=== PATIENT | male | born 1955 | race Caucasian/White ===

== ENCOUNTER 2025-07-21 00:43 | Emergency (ER) | payer OTHER, MEDICARE ==
[2025-07-21] MEDS ORDERED: HYDROMORPHONE HCL 1 MG/ML INJ ONE ×2 (01:35→04:56)
[2025-07-21] MEDS ORDERED: ONDANSETRON 4 MG/2 ML VIAL ONE (01:35)
[2025-07-21 01:45] LABS: Absolute Lymphocytes (CBC) 1.0 K/uL (0.7-4.9); Hematocrit 41.7 % (39.6-49.0); Hemoglobin 14.3 g/dL (13.6-17.9); MCH 31.1 pg (27.0-35.0); MCHC 34.2 g/dL (32.0-36.0); MCV 90.9 fL (80-100); MPV 7.9 fL (7.6-11.3); Nucleated RBC Absolute Count 0.0 (0-0); Nucleated Red Blood Cells % 0.0 % (0-0); RBC Red Blood Cell Count 4.59 M/uL (4.33-5.43); White Blood Count 7.10 thou/uL (4.3-10.9)
[2025-07-21 02:00] LABS: ALT/SGPT 21 U/L (16-61); Albumin 3.6 g/dL (3.4-5.0); Albumin/Globulin Ratio 1.1 (1.1-1.8); Alkaline Phosphatase 51 U/L (45-117); Anion Gap 8.0 mEq/L (5.0-15.0); BUN Blood Urea Nitrogen 20 mg/dL (7-18); Globulin 3.2 g/dL (2.3-3.5); Glucose Level 161 mg/dL (74-106); Lipase 112 U/L (13-75); Potassium 4.0 mEq/L (3.5-5.1)
[2025-07-21 02:03] LABS: AST/SGOT < 10 U/L (15-37)
--- NOTE | 2025-07-21 04:22 | RAD REPORT ---
EXAMINATION: CT CHEST ABDOMEN PELVIS ANGIOGRAPHY WITH IV CONTRAST INDICATION: 70 years old Male 1955 Dissection. COMPARISON(S): None. TECHNIQUE: This examination was performed according to an angiographic protocol with 3D post-processi ng. This involves 3D reconstructions, MIPs, volume rendered images and/or shaded surface rendering. One or more of the following dose reduction techniques were used: Automated exposure control, adjustm ent of the mA and/or kV according to patient size, and/or iterative reconstruction. CONTRAST: As stated in examination. FINDINGS: CHEST: Lower Neck: Visualized thyroid gland and soft tissues are normal. Lungs and Airways: The airways are clear. Diffuse increased interstitial lung disease is present with early honeycombing along the periphery of the left anterior lung. Mild cylindrical bronchiectasis. Pleura: No pleural effusion. No pneumothorax. Hemidiaphragms are normally positioned. Mediastinum and Lymph Nodes: No mediastinal mass or fluid collection. Normal size mediastinal, hilar, and axillary lymph nodes. Thoracic Aorta: Normal caliber and configuration. Pulmonary Arteries: Good quality examination. Normal caliber. No evidence of pulmonary emboli to the subsegmental level. Heart: Normal heart size. No pericardial effusion. Osseous Structures and Chest Wall: Intact. ABDOMEN AND PELVIS: Cholecystectomy. Fatty liver. Fat-containing left adrenal mass measuring 3.3 x 2.4 cm. No follow-up i leela is recommended. JACR 2017 May; 14(8):1038-44, JCAT 2016 Dec-Jan; 40(2):194-200, Urol J spring; 3(2):71-4. ABDOMINAL AORTA/ILIACS: Measurement(s): Aorta: No significant disease. Celiac Artery: No significant disease. Superior Mesenteric Artery: No significant disease. Right Renal Artery: No significant disease. Left Renal Artery: No significant disease. Inferior Mesenteric Artery: No significant disease. 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 Left Iliac Artery: No significant disease. Calcific plaquing without flow-limiting stenosis. IMPRESSION: Moderate chronic interstitial lung disease with early honeycombing. Cholecystectomy. 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 N o aortic dissection or aneurysm. Electronically signed by: Kwaku Harding MD 07/21/2025 04:18 AM CDT RP Due to temporary technical issues with the PACS/Technical Machine reporting system, reports are being rickey d by the in-house radiologist without review as a courtesy to ensure prompt reporting the interpreting radiologist is fully responsible for the content of the report. Transcribed Date/Time: 07/21/2025 4:21 AM
--- NOTE | 2025-07-21 04:39 | ER ---
Nurse's Notes [facility] Name: Stanislav Ball Age: 70 yrs Sex: Male : 1955 Arrival Date: 07/21/2025 Time: 00:43 Bed 20 Private MD: Diagnosis: Dissection of iliac artery Presentation: 07/21 01:00 Chief complaint: Patient states: PT STATES HE PICKED UP LUGGAGE AND HAD SUDDEN RIGHT br2 SIDE PAIN THAT IS WORSE WITH MOVEMENT. PT TOOK TRAMADOL 100MG 2 HRS AND HASN'T HELPED. Coronavirus screen: Client denies travel out of the [place] in the last 14 days. Ebola Screen: Patient denies exposure to infectious person. Initial Sepsis Screen: Does the patient meet any 2 criteria? No. Patient's initial sepsis screen is negative. Does the patient have a suspected source of infection? No. Patient's initial sepsis screen is negative. Risk Assessment: Do you want to hurt yourself or someone else? Patient reports no desire to harm self or others. Onset of symptoms is unknown. 01:00 Method Of Arrival: Ambulatory br2 01:00 Acuity: SEAN 3 br2 Triage Assessment: 01:03 General: Appears comfortable, Behavior is calm, cooperative. Pain: Complains of pain in br2 low back area. Neuro: Boyd Agitation-Sedation Scale (RASS): 0 - Alert and Calm Level of Consciousness is awake, alert, obeys commands, Oriented to person, place, time, situation. Cardiovascular: Denies chest pain. GI: No signs and/or symptoms were reported involving the gastrointestinal system. Musculoskeletal: Reports pain in anterior aspect of right lateral abdomen. Historical: - Allergies: 01:03 Avelox in NaCl (iso-osmotic); br2 - PMHx: 01:03 Hypertensive disorder; br2 - Immunization history:: Adult Immunizations up to date. - Infectious Disease History:: Denies. - Social history:: Smoking status: Patient/guardian denies using tobacco, Patient uses alcohol, occasionally. RX MARIJUANA. Screenin:11 [facility] ED Fall Risk Assessment (Adult) History of falling in the last 3 months, br2 including since admission No falls in past 3 months (0 pts) Confusion or Disorientation No (0 pts) Intoxicated or Sedated No (0 pts) Impaired Gait No (0 pts) Mobility Assist Device Used No (0 pt) Altered Elimination No (0 pt) Score/Fall Risk Level 0 - 2 = Low Risk Oriented to surroundings. Abuse screen: Denies threats or abuse. Denies injuries from another. Nutritional screening: No deficits noted. Tuberculosis screening: No symptoms or risk factors identified. Assessment: 02:56 Reassessment: Patient ambulated independently to the restroom at this time. at6 02:57 Pain: Pain currently is 7 out of 10 on a pain scale. at6 04:43 Reassessment: Provider at bedside updating patient on plan of care. All questions at6 answered at this time. Patient states symptoms have not improved. 05:00 GI: Bowel sounds present X 4 quads. Abd is soft and non tender in right upper quadrant at6 and right lower quadrant. 06:05 General: Report given to Howard BRITO at [facility]. All questions answered and informed of at6 arrival time. . 06:06 General:. kt5 Vital Signs: 01:00 BP 132 / 79; Pulse 60; Resp 16 S; Temp 97.1(TE); Pulse Ox 100% on R/A; Weight 83.91 kg; br2 Height 6 ft. 3 in. ; Pain 8/10; 02:53 BP 117 / 58; Pulse 60; Resp 20; Pulse Ox 99% on R/A; at6 04:10 BP 121 / 56; Pulse 50; Resp 16; Pulse Ox 100% ; at6 06:07 BP 115 / 68; Pulse 70; Resp 18; Pulse Ox 100% on R/A; at6 01:00 Body Mass Index 23.12 (83.91 kg, 190.5 cm) br2 01:00 Pain Scale: Adult br2 ED Course: 00:45 Patient arrived in ED. mr 00:52 Lee Jennings DO is Attending Physician. tt7 01:03 Triage completed. br2 01:03 Arm band placed on right wrist. br2 01:11 Patient has correct armband on for positive identification. Placed in gown. Bed in low br2 position. Call light in reach. Provided Education on: PLAN OF CARE. 01:32 Marina Fritz, RN is Primary Nurse. br2 02:25 CT Aorta for Dissection In Process Unspecified. EDMS 04:50 initiated transfer with [facility] spoke with Jazz. vk 05:00 Inserted saline lock: 20 gauge. at6 05:01 No provider procedures requiring assistance completed. at6 05:38 Patient was accepted to [facility] to Dr. Armendariz \T\[id number] accepting admin jazz N\T\521 vk [id number]. 06:18 Patient transferred, IV remains in place. at6 Administered Medications: 01:44 Drug: Ondansetron IVP 4 mg IVP once; over 2 minutes Route: IVP; Site: left antecubital; at6 04:46 Follow up: Response: Nausea is decreased at6 01:44 Drug: HYDROmorphone IVP 1 mg IVP once Route: IVP; Site: left antecubital; at6 02:56 Follow up: Response: Pain is decreased at6 04:58 Drug: HYDROmorphone IVP 1 mg IVP once Route: IVP; Site: left antecubital; at6 06:09 Follow up: Response: Pain is decreased at6 Medication: 05:01 VIS not applicable for this client. at6 Outcome: 04:39 ER care complete, transfer ordered by tt7 06:06 Transferred by ground EMS to [facility], at6 06:06 Condition: stable 06:06 Discharge instructions given to patient, family, Instructed on the need for transfer, 06:23 Patient left the ED. at6 Signatures: Dispatcher [employer] EDGisella Covarrubias, Reg Reg mr SinghRubi Belinda, RN RN br2 Analisa Lackey RN RN kt5 Lee Jennings DO DO tt7 Caty Jennings RN RN at6
--- NOTE | 2025-07-21 04:39 | EDPHYS ---
Physician Documentation [facility] Name: Stanislav Ball Age: 70 yrs Sex: Male : 1955 Arrival Date: 07/21/2025 Time: 00:43 Bed 20 Private MD: ED Physician Lee Jennings HPI: 07/21 02:43 This 70 yrs old Male presents to ER via Ambulatory with complaints of Abdominal Pain, tt7 Vomiting. 02:43 Patient reports that he picked up some heavy luggage and felt a popping sensation deep tt7 in on his right flank that has been worsening over the past few hours, the pain is sharp and constant, it is moderate to severe in severity, states that it radiates into the right side of his back, associated with nausea and 1 episode of nonbloody nonbilious vomiting, past medical history of hypertension. Historical: - Allergies: 01:03 Avelox in NaCl (iso-osmotic); br2 - PMHx: 01:03 Hypertensive disorder; br2 - Immunization history:: Adult Immunizations up to date. - Infectious Disease History:: Denies. - Social history:: Smoking status: Patient/guardian denies using tobacco, Patient uses alcohol, occasionally. RX MARIJUANA. ROS: 02:40 Constitutional: negative for fever. Cardiovascular: negative for chest pain. tt7 Respiratory: negative for shortness of breath. MS/Extremity: negative for injury and deformity. Skin: negative for rash. Neuro: negative for focal weakness. 02:40 Abdomen/GI: Positive for abdominal pain, nausea and vomiting, Exam: 02:41 Constitutional: vital signs reviewed, well appearing. Head/Face: normocephalic, tt7 atraumatic. Eyes: no conjunctival injection, anicteric sclerae. ENT: mucus membranes moist. Neck: trachea midline, no JVD, no meningismus. Chest/axilla: normal chest wall appearance and motion, nontender, no crepitus. Cardiovascular: regular rate and rhythm, no murmurs, no rubs, no lower extremity edema. Respiratory: normal respiratory effort, no accessory muscle use, lungs CTAB. Abdomen/GI: soft, nondistended, tenderness to the right flank and around to the right thoracic paraspinal musculature, no guarding or rebound, negative Shanks's sign, no McBurney point tenderness. Back: normal ROM. Skin: warm, dry, intact, normal turgor, normal color, no rash. MS/ Extremity: normal ROM of extremities, no gross deformities. Neuro: alert and oriented with appropriate mental status, normal speech, follows commands, no focal neurologic deficits. Psych: appropriate mood and affect. Vital Signs: 01:00 BP 132 / 79; Pulse 60; Resp 16 S; Temp 97.1(TE); Pulse Ox 100% on R/A; Weight 83.91 kg; br2 Height 6 ft. 3 in. ; Pain 8/10; 02:53 BP 117 / 58; Pulse 60; Resp 20; Pulse Ox 99% on R/A; at6 04:10 BP 121 / 56; Pulse 50; Resp 16; Pulse Ox 100% ; at6 06:07 BP 115 / 68; Pulse 70; Resp 18; Pulse Ox 100% on R/A; at6 01:00 Body Mass Index 23.12 (83.91 kg, 190.5 cm) br2 01:00 Pain Scale: Adult br2 MDM: 00:52 Medical Screening Exam initiated tt7 02:42 Differential diagnosis: Nonspecific abd pain, gastritis, pancreatitis, appendicitis, tt7 diverticulitis, viral gastroenteritis, gastroenteritis, AAA. Data reviewed: vital signs, nurses notes, lab test result(s), radiologic studies. ED course: Vital signs are stable, workup initiated including laboratory studies and CT angiogram of the aorta to rule out abdominal aortic pathology. 05:03 ED course: Laboratory studies are reassuring, CT imaging negative for aortic dissection tt7 but there does appear to be a right common iliac artery intimal dissection, I reassessed the patient and updated him on these findings, his pain was well-controlled with the initial dose of Dilaudid but is now returning, his pain is significantly worse when laying supine so he has been laying prone this entire time, I have initiated transfer to a facility with vascular project specialist, I spoke with vascular surgeon Dr. Patterson at [facility] regarding the patient's presentation, imaging findings, and interventions performed. He agrees to consult on the case. 05:22 Counseling: I had a detailed discussion with the patient and/or guardian regarding the tt7 historical points, exam findings, and any diagnostic results supporting the discharge/admit diagnosis, lab results, radiology results, the need to transfer to another facility. ED course: I spoke with hospitalist Dr. Armendariz at [facility] regarding the patient's presentation, laboratory study results, imaging results, and interventions performed, she accepts the patient for admission. 07/21 00:55 Order name: CBC with Diff; Complete Time: 02:05 tt7 07/21 00:55 Order name: CMP; Complete Time: 02:05 tt7 07/21 00:55 Order name: Lipase; Complete Time: 02:05 tt7 07/21 01:13 Order name: CT Aorta for Dissection tt7 07/21 00:55 Order name: IV Saline Lock; Complete Time: 01:44 tt7 07/21 00:55 Order name: Labs collected and sent; Complete Time: :44 tt7 Administered Medications: 01:44 Drug: Ondansetron IVP 4 mg IVP once; over 2 minutes Route: IVP; Site: left antecubital; at6 04:46 Follow up: Response: Nausea is decreased at6 01:44 Drug: HYDROmorphone IVP 1 mg IVP once Route: IVP; Site: left antecubital; at6 02:56 Follow up: Response: Pain is decreased at6 04:58 Drug: HYDROmorphone IVP 1 mg IVP once Route: IVP; Site: left antecubital; at6 06:09 Follow up: Response: Pain is decreased at6 Disposition: 05:24 Co-signature as Attending Physician, Lee Jennings DO. tt7 Disposition Summary: 07/21/25 04:39 Transfer Ordered Notes: Transfer Location: [facility] tt7 Reason: Higher level of care tt7 Condition: Fair tt7 Problem: new tt7 Symptoms: have improved tt7 Accepting Physician: Dr. Armendariz(07/21/25 06:23) at6 Diagnosis - Dissection of iliac artery tt7 Forms: - Medication Reconciliation Form tt7 - SBAR form tt7 Signatures: Dispatcher [employer] Marina Vance RN RN br2 Lee Jennings DO DO tt7 Caty Jennings RN RN at6 Corrections: (The following items were deleted from the chart) 00:56 00:56 CBC+H.LAB.BRZ ordered. EDMS EDMS 00:56 00:56 COMPREHENSIVE METABOLIC PANEL+C.LAB.BRZ ordered. EDMS EDMS 00:56 00:56 LIPASE+C.LAB.BRZ ordered. EDMS EDMS 05:22 04:39 tt7 tt7 06:23 05:22 Dr. Armendariz tt7 at6
[2025-07-21 07:01] VITALS: TEMP 97.1; O2SAT 100
[2025-07-21 07:04] VITALS: BP 115/68
== END 2025-07-21 06:23 | disposition short-term general hospital (02) ==
LOC: ER 00:43
DX: I77.72 Dissection of iliac artery (principal); R11.2 Nausea with vomiting, unspecified
CPT/HCPCS: 85025; 36415; 83690; 80053; 71275; 74175; 96375; 96374; 99285; Q9967; J1171 ×2; J2405